=== PATIENT | female | born 2000 | race Caucasian/White ===

== ENCOUNTER → 2024-04-28 07:51 | Outpatient (BNVA) | payer OTHER, SELFPAY | PROVIDERS: PCP Internal Medicine; Visit Provider Internal Medicine ==

== ENCOUNTER 2024-04-28 07:52 | Outpatient (AMB) | payer OTHER, SELFPAY ==
--- NOTE | 2024-04-28 07:53 | A.OFFPC_ITS ---
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 She has a history of bipolar disorder established with a psychiatrist and therapist and has been taking Vraylar for 1 year. Patient complains of difficulty with short and long- term memory for the last year. She has difficulty finding words and not remembering details of recent events. She denies depression but reports feeling tired when waking up in the morning even after getting 8-9 hours of sleep. Patient denies change in appetite. 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, Housing: House Patient Tobacco Use Status: Never used Tobacco e-Cigarette/Vaping Use: Currently Using service: No Current occupational status: employed Cognitive needs: No Hearing needs: No Vision needs: No Review of Systems Const All systems reviewed & are unremarkable except as noted in HPI and below Reports no additional complaints Eyes Reports no additional complaints ENT Reports no additional complaints Card Reports no additional complaints Resp Reports no additional complaints GI Reports no additional complaints Reports no additional complaints Physical exam (Primary Care) Vital Signs: Last Vital Signs Pulse 108 H 04/28/24 07:54 BP 102/60 04/28/24 07:54 Pulse Ox 98 04/28/24 07:54 Oxygen Delivery Method Room Air 04/28/24 07:54 BMI result Body Mass Index 28.0 Tobacco/Smoking Status: Tobacco use Status Tobacco use date assessed 04/28/24 04/28/24 07:57 Patient Tobacco Use Status Never used Tobacco 04/28/24 08:08 e-Cigarette/Vaping Use Currently Using 04/28/24 08:08 Const General: no acute distress HENMT Head: Yes normal to inspection General nose exam: Normal external nose present Mouth: Normal oral and palatal mucosa present Throat: Yes posterior oropharynx normal Eyes General: appearance normal, both eyes and all related structures Neck Neck: Yes no lymphadenopathy and Yes supple Resp Effort & Inspection: normal respiratory effort Auscultation: clear to auscultation bilaterally Cardio Rhythm: regular rhythm Heart sounds: S1 normal heart sound present and S2 normal heart sound present GI Inspection: Yes normal to inspection Palpation (GI): Soft to palpation Percussion: Yes normal to percussion Auscultation: normal bowel sounds Coding Level of Care Code New Pt Prev Care 18-39yr([id number] Diagnoses Bipolar 1 disorder F31.9 Memory loss R41.3 Assessment & Plan Assessment & Plan (1) Bipolar 1 disorder: Comment: f/u with psychiatrist Code(s): F31.9 - Bipolar disorder, unspecified Category: Medical Plan: Follow-up with psychiatry (2) Memory loss: Code(s): R41.3 - Other amnesia Category: Medical Plan: Patient had a blood work done by psychiatrist and will forward the results. She requested referral to Neurology Orders: Referrals Neurology Referral R41.3 - Other amnesia
[2024-04-28 07:54] VITALS: BP 102/60; PULSE 108; O2SAT 98; BMI 28.0
== END 2024-04-28 08:30 | disposition home or self-care (01) ==
PROVIDERS: PCP Internal Medicine; Visit Provider Internal Medicine
DX: Z00.00 Encounter for general adult medical examination without abnormal findings (principal); R41.3 Other amnesia; F31.9 Bipolar disorder, unspecified

== ENCOUNTER → 2024-08-01 16:45 | Outpatient (BNV) | payer OTHER, SELFPAY | PROVIDERS: PCP Internal Medicine; Visit Provider Radiology Diagnostic Radiology | DX: R56.9 Unspecified convulsions (principal) | CPT/HCPCS: 70553 ==

== ENCOUNTER 2024-08-01 17:18 | Outpatient (REF) | payer OTHER, SELFPAY ==
--- NOTE | ~2024-08-01 | MR_ITS ---
CLINICAL HISTORY: <OBR.31.1><OBR.31.1.1>R56.9 - Unspecified convulsions Pt sustained a concussion wh en they were 18 years old. Has had difficulty remembering original language </OBR.31.1.1><OBR.31.1.2> overall foggy memory for the past 3 years. Has gotten progressively worse.</OBR.31.1.2></OBR.31.1> MR brain with and without IV contrast. COMPARISON: None FINDINGS: No abnormal diffusion restriction in the brain parenchyma or extra-axial spaces. No evidence of mass, mass effect or midline shift. No intracranial hemorrhage or abnormal extra-axial fluid collection. No evidence of hydrocephalus. The basilar cisterns are patent. Normal appearance of the cerebellar hemispheres. No brainstem abnormality is identified. Intracranial flow voids are patent. The visualized paranasal sinuses and mastoid air-cells are clear. No evidence of abnormal enhancement in the brain or meninges. IMPRESSION: 1. No cause for patient's symptoms identified. No evidence of enhancing mass or mass effect. This document has been electronically signed by: Gurjit Jimenez MD on 08/01/2024 18:49:13
[2024-08-01] MEDS: gadobutroL 7.5 ML VIAL IVPUSH (18:00)
== END 2024-08-01 17:19 | disposition home or self-care (01) ==
LOC: HO.MRI 17:18
PROVIDERS: PCP Internal Medicine; Visit Provider Internal Medicine
DX: R56.9 Unspecified convulsions (principal)
CPT/HCPCS: 70553; A9585

== ENCOUNTER 2024-08-19 12:01 | Outpatient (REF) | payer OTHER, SELFPAY | END 2024-08-19 12:02 | disposition home or self-care (01) | LOC: HO.NEURO 12:01 | PROVIDERS: PCP Internal Medicine; Visit Provider Internal Medicine | DX: R41.3 Other amnesia (principal) | CPT/HCPCS: 95816 ==

== ENCOUNTER 2024-10-26 09:37 | Outpatient (AMB) | payer OTHER, MEDICAID, SELFPAY ==
--- NOTE | 2024-10-26 09:41 | MHC.PC.OV ---
Vital Signs 10/26/24 09:42 Height 5 ft 3 in Weight 142 lb BMI 25.2 BP 102/66 Blood Pressure Location Lt brachial Position Sitting Respiration 18 Pulse 86 Pulse Source Pulse Oximeter Temp 98.2 F Temp Source Oral Pulse Oximetry (%) 97 Oxygen Delivery Method Room Air Intake Visit Reasons: ADHD evaluated/Mental health / Pain in breast Intake Note: Pt is here today for a follow up visit. Allergies No Known Allergies Allergy (Verified 10/26/24 09:52) Medication List - Last Reconciled 10/26/24 by Bridgette Lawton MD No Known Home Meds Tobacco use date assessed: 10/26/24 Dental Screening Dental Screen Date: 10/26/24 Did you have a dental visit in the last 12 months?: Yes Did you have a dental problem in the last 6 months where you did not have access to dental care?: No Was dental information given to patient?: Patient has dentist HPI ADHD evaluated/Mental health / Pain in breast HPI Details Pt presents for f/u. Pt has been established with counseling and psychiatry for many years for bipolar disorder. She has stopped taking medications about a year ago and it is looking for a new psychiatrist and a counselor. She denies suicidal or homicidal ideation. 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 1. Little interest or pleasure in doing things: more than half the days 2. Feeling down, depressed, or hopeless: nearly every day 3. Trouble falling or staying asleep, or sleeping too much: several days 4. Feeling tired or having little energy: nearly every day 5. Poor appetite or overeating: several days 6. Feeling bad about yourself - or that you are a failure or have let yourself or your family down: nearly every day 7. Trouble concentrating on things, such as reading the newspaper or watching television: nearly every day 8. Moving or speaking so slowly that other people could have noticed. Or the opposite - being so fidgety or restless that you have been moving around a lot more than usual: not at all 9. Thoughts that you would be better off or of hurting yourself in some way: nearly every day Total score: 19 Depression Screening Interpretation: Positive (Patient has a process of establishing with new counselor and a prescriber, she is not interested in taking medications) Depression Screening Follow-up: Existing condition and In treatment Depression Screening Done: Yes 81172 - PHQ-9 Billing: Yes Source: Developed by Drs. Reji De La O, Clotilde Vivar, Gilmar Hodge and colleagues, with an educational pau from [employer]. Thrive Questionnaire Date Thrive assessed: 10/26/24 I am a: Patient What is your living situation today?: I have a steady place to live Within the past 12 months, did the food you bought not last and you didn't have the money to get more?: Never true Within the past 12 months, did you worry whether your food would run out before you got money to buy more?: Never true Do you have trouble paying for medicines?: No Do you have trouble getting transportation to medical appointments?: No Do you have trouble paying your heating and electricity bill?: No Do you have trouble taking care of your child, family member or friend?: No Do you have trouble with day-to-day activities such as bathing, preparing meals, shopping, managing finances, etc.?: Yes Are you currently unemployed and looking for a job?: No Are you interested in more education?: No Please select the resources that you would like help with: None Currently or been in a relationship where the following occur: No concerns reported THRIVE Score: 0 AUDIT C Alcohol Use Questionnaire (AUDIT-C) 1. How often do you have a drink containing alcohol?: 2-4 times a month 2. How many drinks containing alcohol do you have on a typical day when you are drinking?: 3 or 4 3. How often do you have six or more drinks on one occasion?: Less than monthly Total Score: 4 LISA-7 AMB Questionnaire LISA-7 Date LISA - 7 assessed: 10/26/24 Feeling nervous, anxious, or on edge: 3 = Nearly every day Not being able to stop or control worryin = Nearly every day Worrying too much about different things: 3 = Nearly every day Trouble relaxin = More than half the days Being so restless that it is hard to sit still: 2 = More than half the days Becoming easily annoyed or irritable: 3 = Nearly every day Feeling afraid as if something awful might happen: 3 = Nearly every day Total LISA-7 score (0-4 normal; 5-9 mild; 10-14 moderate; 15-21 severe): 19 Source: Developed by Drs. Reji De La O, Clotilde Vivar, Gilmar Hodge and colleagues, with an educational pau from [employer]. LISA-7 Assessment Billing LISA-7 Assessment Tool: LISA-7 Assessment 43613 Review of Systems Const All systems reviewed & are unremarkable except as noted in HPI and below Reports no additional complaints Eyes Reports no additional complaints ENT Reports no additional complaints Card Reports no additional complaints Resp Reports no additional complaints GI Reports no additional complaints Reports no additional complaints Physical exam (Primary Care) Vital Signs: Last Vital Signs Temp 98.2 F 10/26/24 09:42 Pulse 86 10/26/24 09:42 Resp 18 10/26/24 09:42 BP 102/66 10/26/24 09:42 Pulse Ox 97 10/26/24 09:42 Oxygen Delivery Method Room Air 10/26/24 09:42 BMI result Body Mass Index 25.2 Tobacco/Smoking Status: Tobacco use Status Tobacco use date assessed 10/26/24 10/26/24 09:56 Patient Tobacco Use Status Never used Tobacco 10/26/24 09:44 e-Cigarette/Vaping Use Currently Using 10/26/24 09:44 PHQ-9: PHQ-9 Score PHQ-9: Total score 19 10/26/24 09:56 Depression Screening Interpretation: Positive (Patient has a process of establishing with new counselor and a prescriber, she is not interested in taking medications) Depression Screening Follow-up: Existing condition and In treatment Thrive Assessment: Date of Thrive Assessment Date Thrive assessed 10/26/24 10/26/24 09:56 Currently or been in a relationship where the following occur: No concerns reported Const General: no acute distress HENMT Head: Yes normal to inspection Face and sinus: Yes normal facial exam Resp Effort & Inspection: normal respiratory effort Cardio Rhythm: regular rhythm Heart sounds: S1 normal heart sound present and S2 normal heart sound present Coding Level of Care Code Est Pt Level 3 (90624) Diagnoses Annual physical exam Z Bipolar 1 disorder F31.9 Additional Codes LISA-7 Assessment Billing - LISA-7 Assessment Tool: LISA-7 Assessment 40417 ([id number]) PHQ-9 - 52381 - PHQ-9 Billing: Yes ([id number]) Assessment & Plan Assessment & Plan (1) Annual physical exam: Code(s): Z. - Encounter for general adult medical examination without abnormal findings Category: Medical Plan: Patient will return for fasting blood work (2) Bipolar 1 disorder: Comment: Patient is established with a counselor and psychiatrist , tried multiple medications in the past, not interested in medications Code(s): F31.9 - Bipolar disorder, unspecified Category: Medical Plan: She is getting established with a new counselor and a prescriber. Patient is aware of mental health crisis access Orders: Orders Comprehensive [place]. Panel Fast Today Z00.00 - Encounter for general adult medical examination without abnormal findings, Z01.419 - Encounter for gynecological examination (general) (routine) without abnormal findings Complete Blood Count Auto Diff Today Z00.00 - Encounter for general adult medical examination without abnormal findings, Z01.419 - Encounter for gynecological examination (general) (routine) without abnormal findings Lipid Panel Today Z00.00 - Encounter for general adult medical examination without abnormal findings, Z01.419 - Encounter for gynecological examination (general) (routine) without abnormal findings TSH reflex Free T4 Today Z00.00 - Encounter for general adult medical examination without abnormal findings, Z01.419 - Encounter for gynecological examination (general) (routine) without abnormal findings Vitamin D 25-OH Total Today Z00.00 - Encounter for general adult medical examination without abnormal findings, Z01.419 - Encounter for gynecological examination (general) (routine) without abnormal findings UA w Microscopic Today Z00.00 - Encounter for general adult medical examination without abnormal findings, Z01.419 - Encounter for gynecological examination (general) (routine) without abnormal findings
[2024-10-26 09:42] VITALS: BP 102/66; PULSE 86; RESP 18; TEMP 36.8; O2SAT 97; BMI 25.2
--- OUTSIDE RECORDS SUMMARY | 2024-10-26 10:56 | XMS_ITS | Clinical Summary ---
Author Organization [address] [facility] Address [address] [place] [address] Phone Care Team Providers Care Golf Player Assistant Name Role Phone Physician, Pcp Unknown Primary Care Provider Diana vailable Encounters Date Type Department Care Team Description 10/21/2024 Lab Requisition [facility] - Main Lab [address] [place] [address] Kathy Velez MD Encounter for screening for infections with a predominantly sexual mode of transmission from Last 3 Months Social History Tobacco Use Types Packs/Day Years Used Date Smoking Tobacco: Never Assessed Comments Unknown Sex and Gender Information Value Date Recorded Sex Assigned at Not on file Legal Sex Female 10:51 AM EST Gender Identity Not on file Sexual Orientation Not on file Plan of Treatment Health Maintenance Due Date Last Done Comments HPV Vaccines (1 - 3-dose series) 2017 Hepatitis B Vaccines (2 of 3 - 3-dose series) 02/05/2021 01/08/2021 DTaP,Tdap,and Td Vaccines (1 - Tdap) 2021 Annual Well Child Visit (3-21 years old) 07/01/2022 Depression Screening 07/01/2022 Social Influencers of Health Screening 07/01/2022 Cervical Cancer Screening: Pap Smear 12/26/2023 COVID-19 Vaccine ( season) 2024 11/05/2022, 08/21/2021, 01/12/2021, Additional history exists Influenza Vaccine (#1) 2024 , 08/21/2021, 04/14/2020, Additional history exists Gonorrhea/Chlamydia Screening 10/21/2025 10/21/2024 Hepatitis A Vaccines Completed 04/09/2018, 09/08/20 17 Meningococcal ACWY Vaccine Completed 04/26/2019 Meningococcal B Vacine Completed 12/11/2021, 2020 HIV Screening Completed 10/21/2024 Hepatitis C Screening Completed 10/21/2024 HIB Vaccines Aged Out No longer eligi ble based on patient's age to complete this topic IPV Vaccines Aged Out No longer eligi ble based on patient's age to complete this topic MMR Vaccines Aged Out No longer eligi ble based on patient's age to complete this topic Pneumococcal Vaccine: Pediatrics (0 to 5 Years) and At-Risk Patients (6 to 64 Years) Aged Out No longer eligible based on patient's age to complete this topic RSV Immunization Patients Under 20 months Aged Out No longer eligible based on patient's age to complete this topic Varicella Vaccines Aged Out No longer eligible based on patient's age to complete this topic Procedures Procedure Name Priority Date/Time Associated Diagnosis Comments TREPONEMA PALLIDUM ANTIBODY WITH REFLEX TO RPR AND PARTICLE AGGLUTINATION Routine 10/21/2024 9:29 AM EDT STD exposure HIV 1, 2 ANTIBODY, P24 ANTIGEN WITH REFLEX TO DIFFERENTIATION Routine 10/21/2024 9:29 AM EDT STD exposure HEPATITIS C ANTIBODY Routine 10/21/2024 9:29 AM EDT STD exposure CHLAMYDIA TRACHOMATIS AND NEISSERIA GONORRHOEAE PCR Routine 10/21/2024 12:00 AM EDT Encounter for screening for infections with a predominantly sexual mode of transmission from Last 3 Months Results * Hepatitis C antibody (10/21/2024 9:29 AM EDT) Hepatitis C Antibody Negative Negative LAB CHEMISTRY METHOD 10/21/2024 12:17 PM EDT [facility] Blood Venous blood specimen / Unknown Venipuncture / Unknown 10/21/2024 9:29 AM EDT 10/21/2024 10:47 AM EDT us Kathy Velez MD LAB BLOOD ORDERABLES Fin al Result [facility] [address] [place] [address], [place] [phone] * HIV 1,2 antibody, p24 antigen with reflex to differentiation (10/21/2024 9:29 AM EDT) HIV Combo AB/AG Negative Negative LAB CHEMISTRY METHOD 10/21/2024 12:17 PM EDT [facility] Blood Venous blood specimen / Unknown Venipuncture / Unknown 10/21/2024 9:29 AM EDT 10/21/2024 10:47 AM EDT Narrative [facility] - 10/21/2024 12:17 PM EDT This assay is a 4th generation assay allowing for earlier detection of HIV infection by detecting the presence of the HIV-1 p24 antigen as well as the traditional antibodies to HIV type 1 (including group O) and type 2. ??Use of a 4th generation assay is the current CDC recommendation for HIV screening. Kathy Velez MD LAB BLOOD ORDERABLES Fin al Result Performing Organization Address City/[facility]/ZIP Co de Phone Number [facility] [address] [place] [address], [place] [phone] * Treponema pallidum antibody with reflex to RPR and particle agglutination (10/21/2024 9:29 AM EDT) Pathologist [facility] T. Pallidum Antibodies Negative Negative LAB CHEMISTRY METHOD 10/21/2024 1:08 PM EDT [facility] Blood Venous blood specimen / Unknown Venipuncture / Unknown 10/21/2024 9:29 AM EDT 10/21/2024 10:47 AM EDT Kathy Velez MD LAB BLOOD ORDERABLES Fin al Result [facility] [address] [place] [address], [place] [phone] * Chlamydia trachomatis and Neisseria gonorrhoeae molecular study (10/21/2024 12:00 AM EDT) Neisseria gonorrhoeae PCR Negative Negative LAB MOLECULAR DIAGNOSTICS METHOD 10/21/2024 4:21 PM EDT [facility] Chlamydia trachomatis PCR Negative Negative LAB MOLECULAR DIAGNOSTICS METHOD 10/21/2024 4:21 PM EDT [facility] Swab Cervix uteri structure / Unknown 10/21/2024 10/21/2024 12:44 PM EDT us Kathy Velez MD LAB MICROBIOLOGY - GENER AL ORDERABLES Final Result [facility]) [facility] [address] [place] [address], from Last 3 Months Insurance [facility] MEDICA[employer]VANTAGE Care Teams Golf Player Assistant Relationship Specialty Start Date End Date Physician, Pcp Unknown PCP - General 10/21/24
--- OUTSIDE RECORDS SUMMARY | 2024-10-26 10:56 | XMS_ITS | Encounter Summary ---
Author Organization [facility] Address [address] [place] [phone] Care Team Providers Care Block Chopper Hand Name Role Phone Physician, Pcp Unknown Primary Care Provider Diana vailable Encounter Details Date Type Department Care Team (Latest Contact Info) Description 10/21/2024 Lab Requisition [facility] - Main Lab [address] [facility] [place] [phone] Kathy Velez MD [address] [facility] [address] [place] [phone] Encounter for screening for infections with a predominantly sexual mode of transmission Social History Tobacco Use Types Packs/Day Years Used Date Smoking Tobacco: Never Assessed Comments Unknown Sex and Gender Information Value Date Recorded Sex Assigned at Not on file Legal Sex Female 10:51 AM EST Gender Identity Not on file Sexual Orientation Not on file documented as of this encounter Plan of Treatment Not on file documented as of this encounter Procedures Procedure Name Priority Date/Time Associated Diagnosis Comments CHLAMYDIA TRACHOMATIS AND NEISSERIA GONORRHOEAE PCR Routine 10/21/2024 12:00 AM EDT Encounter for screening for infections with a predominantly sexual mode of transmission documented in this encounter Results * Chlamydia trachomatis and Neisseria gonorrhoeae molecular study (10/21/2024 12:00 AM EDT) Neisseria gonorrhoeae PCR Negative Negative LAB MOLECULAR DIAGNOSTICS METHOD 10/21/2024 4:21 PM EDT [facility] Chlamydia trachomatis PCR Negative Negative LAB MOLECULAR DIAGNOSTICS METHOD 10/21/2024 4:21 PM EDT [facility] Swab Cervix uteri structure / Unknown 10/21/2024 10/21/2024 12:44 PM EDT us Kathy Velez MD LAB MICROBIOLOGY - GENER AL ORDERABLES Final Result [facility]) [facility] [address] [place] [address], [place] [phone] documented in this encounter Visit Diagnoses Diagnosis Encounter for screening for infections with a predominantly sexual mode of transmission documented in this encounter Care Teams Block Chopper Hand Relationship Specialty Start Date End Date Physician, Pcp Unknown PCP - General 10/21/24 documented as of this encounter
--- OUTSIDE RECORDS SUMMARY | 2024-10-26 10:57 | XMS_ITS | Data Portability ---
Author Organization [facility], [address] Address [address] [place] [address] Assessment No assessment recorded. Plan of Treatment Reminders Order Date Submit Date Provider Last Modified By Organization Details Last Modified Time Details Appointments None record ed. Lab None record ed. Referral None record ed. Procedures None record ed. Surgeries None record ed. Imaging None record ed. Medication Orders None record ed. Patient TargetsNo targets recorded. Patient InstructionsNo instructions recorded. Reason for Referral None Reported. Medical Equipment None Reported. Medications Name Sig Start Date Stop Date Status Note LastModified by Organization Details LastModified Time doxycycline hyclate 100 mg capsule TAKE 1 CAPSULE BY MOUTH TWICE A DAY FOR 7 DAYS active Not Available Not Available No t Available fluconazole 150 mg tablet TAKE 1 TABLET BY MOUTH EVERY 72 HOURS active Not Available Not Available No t Available metronidazol e 0.75 % (37.5 mg/5 gram) vaginal gel INSERT 1 APPLICATORF UL VAGINALLY EVERY DAY FOR 5 DAYS active Not Available Not Available N ot Available olanzapine 5 mg tablet TAKE 1 TABLET BY MOUTH DAILY NEEDED AGITATION active Not Available Not Available No t Available metronidazol e 500 mg tablet TAKE 1 TABLET BY MOUTH TWICE A DAY FOR 7 DAYS active Not Available Not Available No t Available cephalexin 500 mg capsule TAKE 1 TABLET BY MOUTH 4 TIMES A DAY active Not Available Not Available Not Available ibuprofen 600 mg tablet TAKE 1 TABLET BY MOUTH 3 TIMES A DAY NEEDED FOR PAIN active Not Available Not Available No t Available sertraline 50 mg tablet TAKE 1 TABLET BY MOUTH EVERY DAY active Not Available Not Available No t Available medroxyproge sterone 150 mg/mL intramuscula r suspension INJECT 1 ML (150 MG TOTAL) INTO THE MUSCLE EVERY 3 (THREE) MONTHS active Not Available Not Available No t Available doxycycline hyclate 100 mg tablet TAKE 1 TABLET BY MOUTH TWICE A DAY active Not Available Not Available No t Available aripiprazole 10 mg tablet TAKE 0.5 TABLET BY MOUTH DAILY FOR 10 DAYS. THEN TAKE 1 TABLET DAILY. active Not Available Not Available No t Available quetiapine 50 mg tablet TAKE 1 TABLET BY MOUTH EVERYDAY AT BEDTIME active Not Available Not Available No t Available Vraylar 1.5 mg capsule TAKE 1 CAPSULE BY MOUTH EVERY DAY active Not Available Not Available No t Available Vraylar 3 mg capsule TAKE 1 CAPSULE BY MOUTH DAILY *DOSE INCREASE* active Not Available Not Available No t Available Vitals None Recorded Social History None recorded. Functional Status None recorded. Mental Status None recorded. Family History Nothing Reported. Medical History No medical history recorded. Gynecological HistoryNo gynecological history recorded. Obstetrics History GPAL:G 0 P 0 0 0 0 Past Encounters Encounter ID Performer Location Encounter Start Date Encounter Closed Date Diagnosis/Indication Diagnosis SNOMED-CT Code Diagnosis ICD10 Code Diagnosis Note [id number] [address] [address] [place] [address] 04/14/2019 13:14:07 04/14/2019 14:47:[id number] [address] [place] [address] 04/04/2018 11:43:58 04/04/2018 12:38:09 [id number] [address] [address] [place] [address] 06/04/2020 14:19:05 06/04/2020 17:19:19 Health Concerns Section Related Observation LastModified by Organization Detai ls LastModified Time None Recorded Concern Status LastModified by Organization Details LastModified Time None Recorded Advance Directives Directive None Recorded Payers Encounter Date Sequence Insurance Name Policy Number Policy Jorge Covered Member ID Jorge Member ID Guarantor Name 04/04/2018 2 [place] [facility] [id number] [facility] 04/14/2019 2 [id number] [place] [address] [id number] [facility] [id number] [facility] 06/04/2020 2 [place] [facility] [id number] Lenorecarol Cabrales [facility]BG[facility] Episode No OBEpisode recorded.
== END 2024-10-26 10:44 | disposition home or self-care (01) ==
PROVIDERS: PCP Internal Medicine; Visit Provider Internal Medicine
DX: Z00.00 Encounter for general adult medical examination without abnormal findings (principal); F31.9 Bipolar disorder, unspecified

== ENCOUNTER → 2024-10-26 09:37 | Outpatient (BNVA) | payer OTHER, SELFPAY | PROVIDERS: PCP Internal Medicine; Visit Provider Internal Medicine | DX: Z00.00 Encounter for general adult medical examination without abnormal findings (principal); F31.9 Bipolar disorder, unspecified | CPT/HCPCS: 96127 ==